=== PATIENT | male | born 1950 | race Caucasian/White ===

== ENCOUNTER 2019-12-10 12:14 | Outpatient (CLI) | payer OTHER, SELFPAY | END 2019-12-10 23:59 | disposition home or self-care (01) | LOC: MLB 12:14 → EDSTATUS 12-20 12:30 | PROVIDERS: ATTEND Surgery | DX: Z01.818 Encounter for other preprocedural examination (principal); Z11.59 Encounter for screening for other viral diseases; K57.12 Diverticulitis of small intestine without perforation or abscess without bleeding | CPT/HCPCS: 93005; U0003-CS ==

== ENCOUNTER 2020-01-23 07:04 | Day surgery (SDC) | payer OTHER, SELFPAY ==
[~2020-01-23] VITALS: Ht 147.3 cm; Wt 46.7 kg
[2020-01-23] MEDS ORDERED: fentaNYL citrate 0.05 MG/ML VIAL ONE (08:10)
[2020-01-23] MEDS ORDERED: MIDAZOLAM 2 MG/2 ML VIAL ONE (08:10)
[2020-01-23] MEDS: MIDAZOLAM 2 MG/2 ML VIAL IVP ONE (08:42)
[2020-01-23] MEDS: fentaNYL citrate 0.05 MG/ML VIAL IVP ONE (08:43)
== END 2020-01-23 10:30 | disposition home or self-care (01) ==
LOC: MDS 07:04 → MFCC 07:05 → MDS 10:30 → EDSEX 12:30
PROVIDERS: ATTEND Surgery
DX: R10.30 Lower abdominal pain, unspecified (principal); K57.32 Diverticulitis of large intestine without perforation or abscess without bleeding; E11.9 Type 2 diabetes mellitus without complications; I10 Essential (primary) hypertension; E78.5 Hyperlipidemia, unspecified; Z20.828 Contact with and (suspected) exposure to other viral communicable diseases
CPT/HCPCS: J2250; J3010; U0003-CS